=== PATIENT | female | born 1965 | race Two or more races ===

== ENCOUNTER 2020-09-07 12:19 | Outpatient (CLI) | payer OTHER | END 2020-09-07 12:35 | disposition home or self-care (01) | LOC: MAMO-SONO 12:19 | PROVIDERS: ATTEND Obstetrics & Gynecology | DX: N60.11 Diffuse cystic mastopathy of right breast (principal); N60.12 Diffuse cystic mastopathy of left breast; Z12.31 Encounter for screening mammogram for malignant neoplasm of breast ==

== ENCOUNTER 2025-04-29 07:49 | Outpatient (CLI) | payer OTHER | END 2025-04-29 07:52 | disposition home or self-care (01) | LOC: MAMO-SONO 07:49 | PROVIDERS: ATTEND Obstetrics & Gynecology | DX: N60.19 Diffuse cystic mastopathy of unspecified breast (principal) ==